=== PATIENT | male | born 1980 | race Caucasian/White ===

== ENCOUNTER 2018-10-23 23:32 | Inpatient (IN) ==
[2018-10-23] MEDS ORDERED: ONDANSETRON 4 MG/2 ML VIAL IV STA (23:56)
[2018-10-23] MEDS ORDERED: SODIUM CHLORIDE 0.9% 1,000 ML IV STA (23:56)
[2018-10-23] MEDS ORDERED: PANTOPRAZOLE 40 MG VIAL IV STA (23:56)
[2018-10-23] MEDS ORDERED: DICYCLOMINE 20 MG/2 ML AMP IM ONE (23:56)
[2018-10-23] MEDS ORDERED: METOCLOPRAMIDE 10 MG/2 ML VIAL IV STA (23:56)
[2018-10-24 00:01] LABS: Basophils # 0.1 10*3/uL (0.0-0.2); Basophils % 1.4 % (0.0-0.8); Eosinophils # 0.1 10*3/uL (0.0-0.87); Eosinophils % 1.1 % (0.00-10.9); Hematocrit 45.6 VOL% (42.0-52.0); Hemoglobin 15.2 GM/DL (14.0-18.0); Immature Granulocytes % 0.3 %; Immature Granulocytes Absolute 0.02 #; Lymphocytes # 1.8 10*3/uL (1.4-4.0); Lymphocytes % 28.7 % (21.2-54.2); Mean Corpuscular HGB Conc 33.3 GM/DL (32-36); Mean Corpuscular Hemoglobin 30 PG (27-34); Mean Corpuscular Volume 91.2 FL (87-102); Mean Platelet Volume 11.6 FL (9.6-12.0); Monocytes # 0.8 10*3/uL (0.11-0.8); Monocytes % 12.7 % (1.7-12.7); Neutrophils # 3.5 10*3/uL (1.4-7.4); Neutrophils % 55.8 % (38.7-73.9); Platelet Count 179 T/CUMM (130-400); Red Cell Distribution Width 14.3 % (9.3-17.3); White Blood Count 6.2 T/CUMM (4-12)
[2018-10-24 00:26] LABS: Albumin 3.3 G/DL (3.4-5.0); Calcium 8.7 MG/DL (8.5-10.1); Osmolality,Calculated 277.8 MOS/KG (273-304); Potassium 4.1 MMOL/L (3.5-5.1); Total Protein 7.3 G/DL (6.4-8.3)
[2018-10-24 04:45] LABS: INR 1.3; PT Patient Result 14.2 SECS; Partial Thromboplastin Time 30.1 SECS (0-40)
[2018-10-24 05:37] LABS: Hepatitis A Ab IgM Quant 0.21 Index; Hepatitis A Ab IgM Result Negative (Negative); Hepatitis C Virus Ab Quant > 11.00 Index; Hepatitis C Virus Ab Result Positive (Negative)
[2018-10-24 05:38] LABS: Hepatitis B Core IgM Quant > 9.00 Index; Hepatitis B Core IgM Result Positive (Negative)
[2018-10-24] MEDS ORDERED: PROMETHAZINE 25 MG/1 ML VIAL IM PRN (05:52)
[2018-10-24] MEDS ORDERED: diphenhydrAMINE CAP 25 MG CAPSULE PO PRN (05:52)
[2018-10-24] MEDS ORDERED: ONDANSETRON 4 MG/2 ML VIAL IV PRN (05:52)
[2018-10-24] MEDS ORDERED: LORazepam 2 MG/1 ML VIAL IV PRN (05:52)
[2018-10-24] MEDS ORDERED: NICOTINE 21 MG/24 HR PATCH TRANSDERM PRN (05:52)
[2018-10-24 06:14] LABS: Hepatitis B Surface Ag Result Positive (Negative)
[2018-10-24] MEDS ORDERED: INFLUENZA VIRUS VACCINE 0.5 ML SYRINGE IM ONE (06:41)
[2018-10-24 07:25] LABS: HIV Antigen/Antibody Result Nonreactive (Nonreactive)
[2018-10-24 09:36] LABS: Risk Ratio 11.7; VLDL CHOLESTEROL 45.6 MG/DL
[2018-10-24 09:38] LABS: Alanine Aminotransferase 2877 U/L (16-61); Albumin 3.2 G/DL (3.4-5.0); Alkaline Phosphatase 314 U/L (45-117); Aspartate Amino Transferase 1460 U/L (0-37); Bilirubin,Indirect 1.2 MG/DL (0.0-1.0); Total Protein 7.1 G/DL (6.4-8.3)
[2018-10-24] MEDS: SODIUM CHLORIDE 0.45% 1,000 ML IV SCH ×4 (10:11→23:16)
[2018-10-24 11:23] LABS: Hepatitis B Surface Ab Result Negative
[2018-10-24 15:43] LABS: Apearance,Urine CLEAR (Clear); Blood, Urine Negative (Negative); Glucose,Urine (UA) Negative (Negative); Ketones,Urine Negative (Negative); Mucus,Urine Occasional /LPF (Occasional); Nitrite,Urine Negative (Negative); Protein,Urine Negative; RBC,Urine 1 /HPF (0-4); Urine Color Amber (Yellow); Urine Specific Gravity 1.032 (1.001-1.035); WBC,Urine 3 /HPF (0-6)
[2018-10-24 15:45] LABS: Bilirubin,Urine Moderate mg/dL (Negative)
[2018-10-24 21:08] LABS: Barbiturates Screen,Urine Negative (Negative); Benzodiazepines Screen,Urine Negative (Negative); Cannabinoid Screen,Urine Positive (Negative); Opiate Screen,Urine Negative (Negative); Phencyclidine Screen,Urine Negative (Negative)
[2018-10-25 04:37] LABS: Basophils # 0.1 10*3/uL (0.0-0.2); Basophils % 1.3 % (0.0-0.8); Eosinophils # 0.1 10*3/uL (0.0-0.87); Eosinophils % 1.5 % (0.00-10.9); Hematocrit 41.9 VOL% (42.0-52.0); Hemoglobin 13.8 GM/DL (14.0-18.0); Immature Granulocytes % 0.4 %; Immature Granulocytes Absolute 0.02 #; Lymphocytes # 1.8 10*3/uL (1.4-4.0); Lymphocytes % 33.7 % (21.2-54.2); Mean Corpuscular HGB Conc 32.9 GM/DL (32-36); Mean Corpuscular Hemoglobin 30 PG (27-34); Mean Corpuscular Volume 92.1 FL (87-102); Mean Platelet Volume 11.5 FL (9.6-12.0); Monocytes # 0.7 10*3/uL (0.11-0.8); Neutrophils # 2.6 10*3/uL (1.4-7.4); Neutrophils % 49.1 % (38.7-73.9); Platelet Count 157 T/CUMM (130-400); Red Blood Count 4.55 MC/CUMM (3.8-5.5); Red Cell Distribution Width 14.7 % (9.3-17.3); White Blood Count 5.2 T/CUMM (4-12)
[2018-10-25] MEDS: SODIUM CHLORIDE 0.45% 1,000 ML IV SCH ×3 (05:02→15:03)
[2018-10-25 05:04] LABS: Albumin 2.6 G/DL (3.4-5.0); Bilirubin,Total 5.6 MG/DL (0.2-1.0); Osmolality,Calculated 271.7 MOS/KG (273-304); Potassium 3.6 MMOL/L (3.5-5.1); Total Protein 5.8 G/DL (6.4-8.3)
[2018-10-25 05:15] LABS: Platelet Estimate Normal
[2018-10-25 05:16] LABS: Burr Cells Slight; Hypochromasia Slight; Ovalocytes Slight
[2018-10-25] MEDS: MORPHINE 4 MG/1 ML VIAL IV PRN ×3 (07:21→21:27)
[2018-10-25] MEDS ORDERED: PROPOFOL 200 MG/20 ML VIAL IV ONE (10:00)
[2018-10-25] MEDS ORDERED: LIDOCAINE 2% 5 ML VIAL ONE (10:00)
[2018-10-26] MEDS: SODIUM CHLORIDE 0.45% 1,000 ML IV SCH ×2 (00:57→07:24)
[2018-10-26] MEDS: MORPHINE 4 MG/1 ML VIAL IV PRN ×3 (00:59→11:45)
[2018-10-26 11:34] LABS: Albumin 2.7 G/DL (3.4-5.0); Bilirubin,Direct 5.73 MG/DL (0.0-0.20); Bilirubin,Indirect 1.7 MG/DL (0.0-1.0); Bilirubin,Total 7.4 MG/DL (0.2-1.0); Total Protein 6.6 G/DL (6.4-8.3)
[2018-10-26 12:13] VITALS: BP 114/75
[2018-10-26] MEDS ORDERED: CLOTRIMAZOLE 1% CREAM 15 GM TUBE TOP SCH (12:30)
== END 2018-10-26 13:22 | disposition home or self-care (01) | DRG 443 ==
LOC: EDBD → EDUNIT# → N.ED 23:32 → N.EDINP 10-24 06:16 → N.3E 10-24 06:20
PROVIDERS: ADMIT Internal Medicine Geriatric Medicine; ATTEND Internal Medicine Geriatric Medicine

== ENCOUNTER 2019-07-02 21:49 | Inpatient (IN) ==
[2019-07-03] MEDS ORDERED: LACTATED RINGERS 1,000 ML IV ONE (00:08)
[2019-07-03 00:30] LABS: Alanine Aminotransferase 23 U/L (16-61); Albumin 2.9 G/DL (3.4-5.0); Alkaline Phosphatase 71 U/L (45-117); Aspartate Amino Transferase 37 U/L (0-37); Bilirubin,Total < 0.39 MG/DL (0.2-1.0); Blood Urea Nitrogen 22 MG/DL (7-18); Calcium 8.5 MG/DL (8.5-10.1); Glucose 86 MG/DL (74-106); Osmolality,Calculated 289.7 MOS/KG (273-304); Total Protein 7.4 G/DL (6.4-8.3)
[2019-07-03 00:49] LABS: Basophils % 0.7 % (0.0-0.8); Eosinophils # 0.2 10*3/uL (0.0-0.87); Eosinophils % 3.1 % (0.00-10.9); Hematocrit 31.5 VOL% (42.0-52.0); Hemoglobin 10.4 GM/DL (14.0-18.0); Immature Granulocytes % 0.3 %; Immature Granulocytes Absolute 0.02 #; Mean Corpuscular Volume 90.5 FL (87-102); Mean Platelet Volume 12.7 FL (9.6-12.0); Neutrophils % 56.9 % (38.7-73.9); Platelet Count 151 T/CUMM (130-400); Red Blood Count 3.48 MC/CUMM (3.8-5.5); White Blood Count 6.1 T/CUMM (4-12)
[2019-07-03] MEDS ORDERED: ONDANSETRON 4 MG/2 ML VIAL IV PRN (00:53)
[2019-07-03] MEDS ORDERED: ACETAMINOPHEN 325 MG TABLET PO PRN (00:53)
[2019-07-03 01:01] LABS: PT Patient Result 10.7 SECS (9.6-12.2)
[2019-07-03 01:16] VITALS: BP 148/84
[2019-07-03] MEDS: LACTATED RINGERS 1,000 ML IV SCH ×2 (02:37→07:18)
[2019-07-03 06:53] LABS: Basophils % 0.6 % (0.0-0.8); Eosinophils # 0.2 10*3/uL (0.0-0.87); Eosinophils % 3.1 % (0.00-10.9); Hematocrit 29.3 VOL% (42.0-52.0); Hemoglobin 9.6 GM/DL (14.0-18.0); Immature Granulocytes % 0.4 %; Immature Granulocytes Absolute 0.02 #; Lymphocytes # 1.7 10*3/uL (1.4-4.0); Lymphocytes % 33.1 % (21.2-54.2); Mean Corpuscular HGB Conc 32.8 GM/DL (32-36); Mean Corpuscular Volume 91.8 FL (87-102); Mean Platelet Volume 9.4 FL (9.6-12.0); Monocytes % 8.6 % (1.7-12.7); Neutrophils % 54.2 % (38.7-73.9); Platelet Count 190 T/CUMM (130-400); Red Blood Count 3.19 MC/CUMM (3.8-5.5); Red Cell Distribution Width 15.2 % (9.3-17.3); White Blood Count 5.2 T/CUMM (4-12)
[2019-07-03 07:26] LABS: Barbiturates Screen,Urine Negative (Negative); Benzodiazepines Screen,Urine Negative (Negative); Cannabinoid Screen,Urine Positive (Negative); Opiate Screen,Urine Positive (Negative); Phencyclidine Screen,Urine Negative (Negative)
[2019-07-03] MEDS ORDERED: ALBUTEROL/IPRATROPIUM 3 ML NEB RESP TX PRN (09:28)
[2019-07-03] MEDS ORDERED: POTASSIUM CHLORIDE 20 MEQ TABLET PO ONE (09:44)
[2019-07-03] MEDS: PANTOPRAZOLE 40 MG TABLET PO SCH (10:14)
[2019-07-03] MEDS: ALBUTEROL/IPRATROPIUM 3 ML NEB RESP TX SCH ×2 (12:01→19:01)
[2019-07-03 12:55] LABS: Hematocrit 29.4 VOL% (42.0-52.0); Hemoglobin 9.7 GM/DL (14.0-18.0)
[2019-07-03] MEDS: LORazepam 0.5 MG TABLET PO PRN (20:46)
[2019-07-04] MEDS: ALBUTEROL/IPRATROPIUM 3 ML NEB RESP TX SCH ×4 (00:29→20:01)
[2019-07-04 01:20] LABS: Hematocrit 29.3 VOL% (42.0-52.0); Hemoglobin 9.4 GM/DL (14.0-18.0)
[2019-07-04] MEDS: LORazepam 0.5 MG TABLET PO PRN (04:40)
[2019-07-04 04:58] LABS: Basophils % 0.4 % (0.0-0.8); Eosinophils # 0.1 10*3/uL (0.0-0.87); Eosinophils % 2.7 % (0.00-10.9); Hematocrit 29.9 VOL% (42.0-52.0); Hemoglobin 9.5 GM/DL (14.0-18.0); Immature Granulocytes % 0.2 %; Immature Granulocytes Absolute 0.01 #; Lymphocytes # 1.6 10*3/uL (1.4-4.0); Lymphocytes % 30.9 % (21.2-54.2); Mean Corpuscular HGB Conc 31.8 GM/DL (32-36); Mean Corpuscular Volume 93.1 FL (87-102); Mean Platelet Volume 9.9 FL (9.6-12.0); Monocytes % 5.9 % (1.7-12.7); Neutrophils % 59.9 % (38.7-73.9); Platelet Count 178 T/CUMM (130-400); Red Blood Count 3.21 MC/CUMM (3.8-5.5); Red Cell Distribution Width 14.9 % (9.3-17.3); White Blood Count 5.3 T/CUMM (4-12)
[2019-07-04 05:16] LABS: Calcium 7.7 MG/DL (8.5-10.1); Osmolality,Calculated 280.4 MOS/KG (273-304)
[2019-07-04] MEDS ORDERED: POTASSIUM CHLORIDE 20 MEQ TABLET PO ONE (09:00)
[2019-07-04] MEDS ORDERED: MAGNESIUM SULF RIDER 2 GM in PREMIX 1 EACH IV ONE (09:00)
[2019-07-04] MEDS: PANTOPRAZOLE 40 MG TABLET PO SCH (09:02)
[2019-07-04] MEDS ORDERED: KETOROLAC 10 MG TABLET PO PRN (09:04)
== END 2019-07-04 23:31 | disposition left against medical advice (07) | DRG 815 ==
LOC: EDBD → EDUNIT# → N.ED 21:49 → N.EDINP 07-03 00:53 → N.ICU 07-03 01:50 → N.3E 07-04 17:26
PROVIDERS: ADMIT Surgery; ATTEND Surgery